=== PATIENT | male | born 1995 | race Caucasian/White ===

== ENCOUNTER 2022-02-25 18:26 | Emergency (ER) | payer BC, OTHER ==
[2022-02-25 18:40] VITALS: O2SAT 100
--- NOTE | 2022-02-25 18:53 | ERPHSYRPT ---
- History of Present Illness Time Seen by Provider: 02/25/22 18:48 Source: patient Exam Limitations: no limitations Patient Subjective Stated Complaint: Laceration Triage Nursing Assessment: Patient ambulated back to ED and transferred self to bed. Patient A+O X 3. Patient's skin pink, warm and dry. Patient complains of laceration to to 3rd and 4th digit middle knuckle. Patient states he was moving a piece of metal and it cut his fingers. Patient has .1Cm X 0.1 cm laceration noted to left hand 3rd digit knuckle and 0.5cm X 0.5cm laceration to 4th digit middle knuckle. Patient denies pain or discomfort. Physician History: 26-year-old right-handed dominant male presented to the ER with laceration left third and fourth fingers after he accidentally hit the metal in the garage with laceration, bleeding initially but stopped with applying pressure. No injury anywhere else. Up-to-date with tetanus. Timing/Duration: today, resolved prior to arrival, sudden, improved Quality: painful Severity: mild Location: hands Possible Causes: other Associated Symptoms: rash Allergies/Adverse Reactions: No Known Drug Allergies Allergy (Verified 02/25/22 18:29) Home Medications: No Reportable Medications [No Reported Medications] 02/25/22 [History] Hx Tetanus, Diphtheria Vaccination/Date Given: No Hx Influenza Vaccination/Date Given: No Hx Pneumococcal Vaccination/Date Given: No Immunizations Up to Date: Yes Travel Risk - International Travel Have you traveled outside of the country in past 3 weeks: No - Coronavirus Screening Are you exhibiting any of the following symptoms?: No Close contact with a COVID-19 positive Pt in past 14-21 Days: No - Vaccine Status Have you recieved a Covid-19 vaccination: No - Review of Systems Constitutional: No Symptoms Eyes: No Symptoms Ears, Nose, & Throat: No Symptoms Respiratory: No Symptoms Cardiac: Chest Pain Abdominal/Gastrointestinal: No Symptoms Genitourinary Symptoms: No Symptoms Musculoskeletal: Injury, Joint Pain Skin: Skin Lesions Neurological: No Symptoms Psychological: No Symptoms Endocrine: No Symptoms Hematologic/Lymphatic: No Symptoms Immunological/Allergic: No Symptoms - Past Medical History Pertinent Past Medical History: No Neurological History: No Pertinent History ENT History: No Pertinent History Cardiac History: No Pertinent History Respiratory History: No Pertinent History Musculoskeletal History: No Pertinent History GI Medical History: No Pertinent History History: No Pertinent History Psycho-Social History: No Pertinent History Male Reproductive Disorders: No Pertinent History - Past Surgical History Past Surgical History: No Neuro Surgical History: No Pertinent History Cardiac: No Pertinent History Respiratory: No Pertinent History Gastrointestinal: No Pertinent History Genitourinary: No Pertinent History Musculoskeletal: No Pertinent History Male Surgical History: No Pertinent History - Social History Smoking Status: Never smoker Exposure to second hand smoke: No Drug Use: none Patient Lives Alone: Yes - Nursing Vital Signs Nursing Vital Signs: Initial Vital Signs Temperature 97.7 F 02/25/22 18:31 Pulse Rate 68 02/25/22 18:31 Respiratory Rate 18 02/25/22 18:31 Blood Pressure 132/89 02/25/22 18:31 O2 Sat by Pulse Oximetry 100 02/25/22 18:31 Pain Scale Pain Intensity 0 - Physical Exam General Appearance: no apparent distress, alert Neck Exam: normal inspection, non-tender, supple, full range of motion Respiratory Exam: normal breath sounds, lungs clear Cardiovascular Exam: regular rate/rhythm, normal heart sounds Back Exam: normal inspection, normal range of motion Extremity Exam: normal range of motion, pelvis stable, lacerations (0.2cm superficial laceration left hand third digit proximal interphalangeal joint. 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 Superficial, do not think needs imaging. Counseled pt/family regarding: diagnosis, need for follow-up - Departure Departure Disposition: Home Clinical Impression: Finger laceration Condition: Stable Critical Care Time: No Referrals: DOCTOR,NO FAMILY [Primary Care Provider] - Follow up/PCP as directed MARY SABILLON DO [ACTIVE STAFF] - Follow Up with PCP/3 days Instructions: Laceration Repair With Stitches (DC) Additional Instructions: Take Tylenol/ibuprofen as needed. Follow-up with primary care for reevaluation. Avoid exertional activities. Keep it clean. Return to ER for increasing swelling pain redness, difficulty movements etc.
[2022-02-25 19:17] VITALS: BP 134/88; PULSE 70
== END 2022-02-25 19:16 | disposition home or self-care (01) ==
LOC: ED 18:26
DX: S61.213A Laceration without foreign body of left middle finger without damage to nail, initial encounter (principal); S61.215A Laceration without foreign body of left ring finger without damage to nail, initial encounter; W22.8XXA Striking against or struck by other objects, initial encounter
CPT/HCPCS: 12001; 99283